=== PATIENT | female | born 1970 | race Caucasian/White ===

== ENCOUNTER 2016-10-26 08:31 | Emergency (ER) | payer OTHER ==
[~2016-10-26] VITALS: Wt 63.0 kg
[2016-10-26] MEDS ORDERED: LIDOCAINE/MYLANTA 40 ML BTL PO ONE (09:30)
[2016-10-26] MEDS ORDERED: FAMOTIDINE 20 MG TAB PO ONE (09:30)
[2016-10-26 09:52] LABS: BASOPHILS % 0.1 % (0.0-2.0); EOSINOPHILS % 0.1 % (0.0-7.0); HEMATOCRIT 42.8 % (37.0-47.0); HEMOGLOBIN 14.5 g/dl (12.0-16.0); LYMPHOCYTES % 8.6 % (15.0-51.0); MEAN CORPUSCULAR HEMOGLOBIN 30.6 pg (29.0-33.0); MEAN CORPUSCULAR HGB CONC 33.8 g/dl (32.0-37.0); MEAN CORPUSCULAR VOLUME 90.5 fl (82.0-101.0); MEAN PLATELET VOLUME 8.7 fl (7.4-10.4); MONOCYTE # 0.3 10^3/ul (0.3-0.9); MONOCYTES % 2.9 % (0.0-11.0); NEUTROPHIL # 9.8 10^3/ul (1.6-7.5); NEUTROPHILS % 88.3 % (39.0-77.0); PLATELET COUNT 290 10^3/UL (140-440); RED BLOOD COUNT 4.73 10^6/ul (4.20-5.40); RED CELL DISTRIBUTION WIDTH 13.7 % (11.5-14.5); UNCORRECTED WBC 11.1 10^3/ul (4.8-10.8); WHITE BLOOD COUNT 11.1 10^3/ul (4.8-10.8)
[2016-10-26 09:55] LABS: CONDITION 1
[2016-10-26 09:57] LABS: ALBUMIN 4.6 g/dl (3.3-4.9)
[2016-10-26 09:58] LABS: POTASSIUM 4.4 mmol/L (3.5-5.1)
[2016-10-26 09:59] LABS: ADD UMIC YES; URINE BILIRUBIN (Dip) NEGATIVE (NEGATIVE); URINE BLOOD (Dip) 3+ (NEGATIVE); URINE COLOR LT. YELLOW (YELLOW); URINE GLUCOSE (Dip) NEGATIVE (NEGATIVE); URINE KETONES (Dip) NEGATIVE (NEGATIVE); URINE LEUKOCYTE ESTERASE (Dip) NEGATIVE (NEGATIVE); URINE NITRITE (Dip) NEGATIVE (NEGATIVE); URINE TOTAL PROTEIN (Dip) NEGATIVE (NEGATIVE); URINE UROBILINOGEN (Dip) 0.2 E.U./dL (0.1-1.0)
[2016-10-26 10:00] LABS: BILIRUBIN,INDIRECT 0.7 mg/dl (0-1.1); BILIRUBIN,TOTAL 0.7 mg/dl (0.2-1.3); CREATININE 0.64 mg/dl (0.44-1.00)
[2016-10-26 10:01] LABS: ALBUMIN/GLOBULIN RATIO 1.09; CALCIUM 10.3 mg/dl (8.4-10.2); TOTAL PROTEIN 8.8 g/dl (6.1-8.1)
[2016-10-26] MEDS ORDERED: FAMO-18 PO (11:36)
[2016-10-26 11:45] VITALS: TEMP 98.4
--- NOTE | 2016-10-26 12:19 | ERD ---
ER Documentation Chief Complaint Date/Time DATE: 10/26/16 TIME: 12:15 Chief Complaint ABDOMINAL PAIN SINCE LAST NIGHT. NO NAUSEA OR VOMITING NOTED. HPI 46-year-old female with a past medical history of hyperlipidemia presents the ED complaining of abdominal pain that started last night. States that it is predominantly in the epigastric region. Reports that it does not radiate. States that her last menses started earlier today. Reports that she had a normal bowel movement earlier today. States that the pain is a burning type of sensation and rates the pain a 8 out of 10. Denies any chest pain, shortness of breath, nausea, vomiting, diarrhea, melena, hemoptysis, cough. States that she has had a previous right ovarian cystectomy. Denies any smoking, alcohol use, drug use. ROS All systems reviewed and are negative except as per history of present illness. Medications Home Meds Active Scripts Famotidine* (Pepcid*) 20 Mg Tablet, 20 MG PO BID for 4 Days, #30 TAB Prov:KULWINDER GONZALEZ PA-C 10/26/16 Reported Medications [None] No Conflict Check 02/14/12 Allergies Allergies: Coded Allergies: No Known Allergies (Verified Allergy, Unknown, 02/14/12) PMhx/Soc History of Surgery: Yes (PREVIOUS CYSTECTOMY) Anesthesia Reaction: No Hx Neurological Disorder: No Hx Respiratory Disorders: No Hx Cardiac Disorders: Yes (HYPERCHOLESTEROLEMIA) Hx Psychiatric Problems: No Hx Miscellaneous Medical Probl: No Hx Alcohol Use: No Hx Substance Use: No Hx Tobacco Use: No Smoking Status: Never smoker Physical Exam Vitals Vital Signs Date Time Temp Pulse Resp B/P Pulse Ox O2 Delivery O2 Flow Rate FiO2 10/26/16 11:45 98.4 10/26/16 08:36 98.4 81 20 124/64 98 Physical Exam Const: [id number], well-nourished. In no acute distress. Head: Atraumatic, normocephalic Eyes: Normal Conjunctiva without injection. No purulent discharge. ENT: Normal external ear, nose. Moist oropharynx without tonsillar exudates. Non -erythematous pharynx. Uvula midline. No drooling. No trismus. Neck: No cervical midline tenderness. Full range of motion. No meningismus. No cervical lymphadenopathy. No JVD. Resp: Clear to auscultation bilaterally. No wheezing, rhonchi, rales, or crackles. No accessory muscle use. No retractions. Cardio: Regular rate and rhythm. No murmurs, rubs or gallops. Abd: Soft, tenderness to palpation of the epigastric region, non distended. Normal bowel sounds. No palpable masses. No rebound tenderness. No guarding. Negative McBurney's point. Negative psoas sign. Negative obturator sign. Skin: No petechiae or rashes Back: No midline tenderness. No CVA tenderness. Ext: No cyanosis, or edema. Neur: Awake and alert. Normal gait. Normal coordination. Psych: Normal Mood and Affect Result Diagram: 10/26/1692210/26/16922 Results 24 hrs Laboratory Tests Test 10/26/16 09:22 10/26/16 09:23 Urine Bilirubin NEGATIVE Urine Clarity CLEAR Urine Color LT. YELLOW Urine Glucose NEGATIVE% Urine Hemoglobin 3+ Urine Ketones NEGATIVE Urine Leukocyte Esterase NEGATIVE Urine Microscopic RBC 10-25/HPF Urine Microscopic WBC NONE SEEN/HPF Urine Nitrite NEGATIVE Urine Specific [place] <=1.005 Urine Total Protein NEGATIVE Urine Urobilinogen 0.2 E.U./dL Urine pH 6.5 Alanine Aminotransferase (ALT/SGPT) 81IU/L Albumin 4.6g/dl Albumin/Globulin Ratio 1.09 Alkaline Phosphatase 89IU/L Anion Gap 19 Aspartate Amino Transf (AST/SGOT) 141IU/L Basophils # 0.010^3/ul Basophils % 0.1% Blood Urea Nitrogen 14mg/dl Calcium Level 10.3mg/dl Carbon Dioxide Level 28mmol/L Chloride Level 104mmol/L Creatinine 0.64mg/dl Direct Bilirubin 0.00mg/dl Eosinophils # 0.010^3/ul Eosinophils % 0.1% Globulin 4.20g/dl Glucose Level 91mg/dl Hematocrit 42.8% Hemoglobin 14.5g/dl Indirect Bilirubin 0.7mg/dl Lipase 85U/L Lymphocytes # 1.010^3/ul Lymphocytes % 8.6% Mean Corpuscular Hemoglobin 30.6pg Mean Corpuscular Hemoglobin Concent 33.8g/dl Mean Corpuscular Volume 90.5fl Mean Platelet Volume 8.7fl Monocytes # 0.310^3/ul Monocytes % 2.9% Neutrophils # 9.810^3/ul Neutrophils % 88.3% Nucleated Red Blood Cells # 0.010^3/ul Nucleated Red Blood Cells % 0.0/100WBC Platelet Count 61167^3/UL Potassium Level 4.4mmol/L Red Blood Count 4.7310^6/ul Red Cell Distribution Width 13.7% Sodium Level 147mmol/L Total Bilirubin 0.7mg/dl Total Protein 8.8g/dl White Blood Count 11.110^3/ul Current Medications Medications (Trade) Dose Ordered Sig/Louisa Route PRN Reason Start Time Stop Time Status Last Admin Dose Admin Miscellaneous Medication (Gi Cocktail (2)) 40 ml ONCE ONCE PO 10/26/16 09:30 10/26/16 09:31 DC 10/26/16 09:29 Famotidine (Pepcid) 20 mg ONCE ONCE PO 10/26/16 09:30 10/26/16 09:31 DC 10/26/16 09:29 Procedures/MDM This is a 46-year-old female with no significant past medical history presents to the ED complaining of epigastric pain that started last night. Patient is afebrile and nontoxic-appearing. Patient has normal vital signs. Patient was further worked up with CBC, CMP, lipase, UA, urine . Patient's pain and symptoms have improved after treatment with GI cocktail, famotidine. CBC: No leukocytosis. No e/o of systemic infection. No e/o anemia. CMP: No e/o severe acidosis, alkalosis, renal failure, diabetic ketoacidosis, liver disease Lipase within normal limits. Urine: No leukocyte esterase, no nitrites, no hematuria. Urine : negative Patient symptoms are likely due to possible gastritis. There is a suspicion for cholecystitis, choledocholithiasis, cholangitis, pancreatitis, gallstone pancreatitis, acute myocardial infarction, pneumothorax, pnuemonia, cardiac tamponade, pulmonary embolism, AAA, aortic dissection, Boerhaave's syndrome, cardiac dysrhythmias,meningitis, intracranial bleed, seizure, stroke, TIA or other emergent conditions. A differential diagnosis considered includes but is not limited to GERD, peptic ulcer disease, cholecystitis, choledocholithiasis, cholangitis, pancreatitis, appendicitis, bowel obstruction, ileus, volvulus, nephrolithiasis, pyelonephritis, hepatitis, perforated viscus, diverticulitis, abdominal hernia, acute abdomen, mesenteric ischemia or other emergent conditions. Discharge medications: Famotidine Follow up with primary care physician in 1-2 days for referral to [facility] hanger. Instructed patient to return to the ED sooner for any worsening symptoms. Patient's questions were answered. Patient understood and agreed with discharge plan. Patient discharged stable. Departure Diagnosis: Primary Impression: Epigastric pain Condition: Stable Patient Instructions: Epigastric Pain (Uncertain Cause) Referrals: [facility] YOU HAVE RECEIVED A MEDICAL SCREENING EXAM AND THE RESULTS INDICATE THAT YOU DO NOT HAVE A CONDITION THAT REQUIRES URGENT TREATMENT IN THE EMERGENCY DEPARTMENT. FURTHER EVALUATION AND TREATMENT OF YOUR CONDITION CAN WAIT UNTIL YOU ARE SEEN IN YOUR DOCTORS OFFICE WITHIN THE NEXT 1-2 DAYS. IT IS YOUR RESPONSIBILITY TO MAKE AN APPOINTMENT FOR FOLOW-UP CARE. IF YOU HAVE A PRIMARY DOCTOR --you should call your primary doctor and schedule an appointment IF YOU DO NOT HAVE A PRIMARY DOCTOR YOU CAN CALL OUR PHYSICIAN REFERRAL HOTLINE AT IF YOU CAN NOT AFFORD TO SEE A PHYSICIAN YOU CAN CHOSE FROM THE FOLLOWING [facility] [address] [facility]. [facility] [address] [facility]. [facility] [address] [facility] [facility] [address] [facility] [facility] [address] [facility]. [facility]. [address] [facility]. [facility] YOU HAVE RECEIVED A MEDICAL SCREENING EXAM AND THE RESULTS INDICATE THAT YOU DO NOT HAVE A CONDITION THAT REQUIRES URGENT TREATMENT IN THE EMERGENCY DEPARTMENT. FURTHER EVALUATION AND TREATMENT OF YOUR CONDITION CAN WAIT UNTIL YOU ARE SEEN IN YOUR DOCTORS OFFICE WITHIN THE NEXT 1-2 DAYS. IT IS YOUR RESPONSIBILITY TO MAKE AN APPOINTMENT FOR FOLOW-UP CARE. IF YOU HAVE A PRIMARY DOCTOR --you should call your primary doctor and schedule and appointment IF YOU DO NOT HAVE A PRIMARY DOCTOR YOU CAN CALL OUR PHYSICIAN REFERRAL HOTLINE AT . IF YOU CAN NOT AFFORD TO SEE A PHYSICIAN YOU CAN CHOSE FROM THE FOLLOWING [facility]: [facility] [address] [place] [address] [facility] [address] [place] [address] [facility] [address] [place] [address] [facility] URGENT CARE/SPECIALTIES Additional Instructions: Visite a ramires ranjan johns para un EXAMEN.Regrese a estas instalaciones si no se mejora laurita esperbamos o laurita le dijimos. KULWINDER GONZALEZ PA-C Oct 26, 2016 12:19
== END 2016-10-26 11:45 | disposition home or self-care (01) ==
LOC: FTE 08:31
DX: R10.13 Epigastric pain (principal)
CPT/HCPCS: 80053; 81001; 81003; 83690; 85025; Z7610; 36415; 99283

== ENCOUNTER 2017-02-19 05:51 | Emergency (ER) | payer OTHER ==
[~2017-02-19] VITALS: Ht 154.9 cm; Wt 69.5 kg
[~2017-02-19 05:51] MED LIST: FAMO-18 PO
[2017-02-19 05:55] VITALS: Ht 154.9 cm; Wt 69.5 kg
--- NOTE | 2017-02-19 06:22 | ERD ---
ER Documentation Chief Complaint Date/Time DATE: 02/19/17 TIME: 06:10 Chief Complaint Epigastric Pain since 10AM yesterday. Seen 4 months ago for the same proble HPI 46-year-old female presents to the emergency department for epigastric pain that started yesterday at around 10 AM. Patient described pain as sharp/dull that is nonradiating with a rate of 8/10 at this time. States that the pain woke her up this morning. Denies headache, loss of consciousness, dizziness, blurry vision, changes in vision, photophobia, facial pain, ear pain, throat pain, difficulty swallowing, neck pain, shoulder pain, chest pain, cough, hemoptysis, back pain, loss of appetite, nausea, vomiting, hematochezia, diarrhea, constipation, urinary symptoms, , the possibility of being , bladder and bowel incontinences, extremity weakness, extremity tenderness, numbness or tingling sensation, difficulty walking, recent travel, recent exposure to illness, recent antibiotic use in the last 3 months, fever, chills. LMP: January 27, 2017. A0. No known drug allergies. Past medical history of hyperlipidemia. Surgical history: Stated that she has right ovarian cyst removal. Family history: Denies family history of cardiac before the age of 50. Social history: Works as a dental residential real estate assistant. Denies smoking, use of alcohol, use of illegal drugs. ROS All systems reviewed and are negative except as per history of present illness. Medications Home Meds Active Scripts Famotidine* (Pepcid*) 20 Mg Tablet, 20 MG PO DAILY for 10 Days, TAB Prov:JULIENNE PRESTONAR F 02/19/17 Ondansetron (Ondansetron Odt) 4 Mg Tab.rapdis, 4 MG PO Q6H Y for NAUSEA AND/OR VOMITING, #20 TAB Prov:PASILABAN,JULIENNEAR F 02/19/17 Hydrocodone/Acetaminophen (Parsons 10-325 Tablet) 1 Each Tablet, 1 TAB PO Q6H Y for PAIN, #20 TAB Prov:PASILABAN,JULIENNEAR F 02/19/17 Famotidine* (Pepcid*) 20 Mg Tablet, 20 MG PO BID for 4 Days, #30 TAB Prov:KULWINDER GONZALEZ PA-C 10/26/16 Reported Medications [None] No Conflict Check 02/14/12 Allergies Allergies: Coded Allergies: No Known Allergies (Verified Allergy, Unknown, 02/14/12) PMhx/Soc History of Surgery: Yes (PREVIOUS CYSTECTOMY) Anesthesia Reaction: No Hx Neurological Disorder: No Hx Respiratory Disorders: No Hx Cardiac Disorders: Yes (HYPERCHOLESTEROLEMIA) Hx Psychiatric Problems: No Hx Miscellaneous Medical Probl: No Hx Alcohol Use: No Hx Substance Use: No Hx Tobacco Use: No Physical Exam Vitals Vital Signs Date Time Temp Pulse Resp B/P Pulse Ox O2 Delivery O2 Flow Rate FiO2 02/19/17 05:55 99.2 72 20 121/70 99 Physical Exam CONSTITUTIONAL: Well-appearing; well-nourished; in no apparent distress. HEAD: Normocephalic; atraumatic. EYES: Conjunctiva clear, sclera non-icteric, EOM intact. PERRL Ears: Hearing intact. EACs clear, TMs non-bulging, non-inflamed, translucent & mobile, ossicles normal appearance, No obstructions, no erythema, no discharges Nose: No obstructions. No polyps. No external lesions. Mucosa non-inflamed. No external lesions, septum and turbinates normal. No rhinorrhea. No discharges. Frontal sinus is non-tender to palpation. Maxillary sinus is non-tender to palpation. MOUTH: Moist mucous membranes, no lesion, no obstructions, no vesicles, no thrush, patent airway Throat: Uvula in midline. Right tonsil is +1 with no erythema, no exudate. Left tonsil is +1 with no erythema, no exudate. Tolerating secretions well. Good gag reflex. Patent airway. Neck: Supple, without lesions, bruits, or adenopathy. No mass. Thyroid non- enlarged and non-tender to palpation. CHEST: Symmetrical chest. Respirations even and not labored. No retractions noted. CARDIOVASCULAR: Normal S1, S2. RRR. No murmurs, gallops. RESPIRATORY: Normal chest excursion with respiration; breath sounds clear and equal bilaterally; no wheezes, rhonchi, or rales. Breathing even and unlabored. Speaking in clear, full, and complete sentences w/ ease. ABDOMEN: Normal bowel sounds normal. Soft, round, non-distended, non-guarding, no rebound, no organomegaly, no masses, no pulsating abdominal mass. Has right upper abdominal tenderness during inspiration. No hernia. Negative on Rovsing' s sign. Negative on Aldo sign. Able to jump 5 times without developing right -sided abdominal pain. No peritoneal signs. : No CVA tenderness. BACK: Symmetrical shoulder. Spine is midline without deformity, tenderness. No evidence of trauma or deformity. PELVIS: Stable pelvis. No evidence of trauma or deformity. MUSCULOSKELETAL: Normal gait and station. No misalignment, asymmetry, crepitation, defects, tenderness, masses, effusions, decreased range of motion, instability, atrophy or abnormal strength or tone in the head, neck, spine, ribs , pelvis or extremities. No calf tenderness. NEUROVASCULAR: Distal pulses are present. Pedal pulse are present, equal, and normal. Capillary refills are < 2 seconds. NEUROLOGIC: Alert and oriented x4. Speaks full and clear sentences. Cranial Nerves II-XII normal. Sensation to pain, touch, and proprioception normal. Grossly unremarkable. No neurologic deficits. Romberg test is negative. PSYCHOLOGICAL: The patients mood and manner are appropriate. No hallucinations , delusions. Not SI. Not HI. Has the capacity to decide for self SKIN: Normal for age and ethnicity; warm; dry; good turgor; no apparent lesions or exudates. No rashes, hives, discoloration. Intact. Result Diagram: 02/19/1763402/19/1735 Results 24 hrs Laboratory Tests Test 02/19/17 06:26 02/19/17 06:35 Urine Color LT. YELLOW Urine Clarity CLEAR Urine pH 7.0 Urine Specific [place] 1.010 Urine Ketones NEGATIVE Urine Nitrite NEGATIVE Urine Bilirubin NEGATIVE Urine Urobilinogen 0.2 E.U./dL Urine Leukocyte Esterase NEGATIVE Urine Microscopic RBC 0-2/HPF Urine Microscopic WBC NONE SEEN/HPF Urine Epithelial Cells RARE Urine Amorphous Phosphates OCCASIONAL Urine Hemoglobin TRACE Urine Glucose NEGATIVE% Urine Total Protein NEGATIVE Urine Test NEGATIVE White Blood Count 7.110^3/ul Red Blood Count 4.4210^6/ul Hemoglobin 13.6g/dl Hematocrit 39.9% Mean Corpuscular Volume 90.3fl Mean Corpuscular Hemoglobin 30.8pg Mean Corpuscular Hemoglobin Concent 34.1g/dl Red Cell Distribution Width 13.0% Platelet Count 10376^3/UL Mean Platelet Volume 10.3fl Neutrophils % 75.3% Lymphocytes % 18.3% Monocytes % 5.5% Eosinophils % 0.3% Basophils % 0.3% Nucleated Red Blood Cells % 0.0/100WBC Neutrophils # 5.410^3/ul Lymphocytes # 1.310^3/ul Monocytes # 0.410^3/ul Eosinophils # 0.010^3/ul Basophils # 0.010^3/ul Nucleated Red Blood Cells # 0.010^3/ul Sodium Level 143mmol/L Potassium Level 4.0mmol/L Chloride Level 104mmol/L Carbon Dioxide Level 28mmol/L Anion Gap 15 Blood Urea Nitrogen 12mg/dl Creatinine 0.69mg/dl Glucose Level 99mg/dl Calcium Level 9.9mg/dl Total Bilirubin 0.8mg/dl Direct Bilirubin 0.00mg/dl Indirect Bilirubin 0.8mg/dl Aspartate Amino Transf (AST/SGOT) 26IU/L Alanine Aminotransferase (ALT/SGPT) 29IU/L Alkaline Phosphatase 67IU/L Total Protein 8.2g/dl Albumin 4.2g/dl Globulin 4.00g/dl Albumin/Globulin Ratio 1.05 Amylase Level 74U/L Lipase 75U/L Beta HCG, Quantitative < 2.4mIU/ml Procedures/MDM Examination: Please see physical examination. Disease process, medical treatment was explained to the patient and family member. They verbalized understanding and agreed with the diagnostic tests, medical treatment, and follow-up care. EKG: Normal sinus rhythm with ventricular rate of 62 bpm. No evidence of acute myocardial infarction. Radiology: Gallbladder ultrasound. Impression: Gallstones and gallbladder sludge without ultrasound evidence of cholecystitis. Pancreas obscured by overlying bowel gas. Blood works: Reviewed. HCG urine: Negative. Urinalysis: Reviewed. Re-evaluation: Denies headache, dizziness, blurry vision, throat pain, neck pain , shoulder pain, chest pain, abdominal pain, back pain. Able to tolerate one cup of water by mouth. No episode of emesis here in the emergency department. There is no right-sided/right lower/epigastric/left upper/left lower abdominal tenderness and light and deep palpation. No CVA tenderness. Negative on Rovsing sign. Negative Goodyear sign. Able to jump 5 times without developing right-sided abdominal pain. No peritoneal signs. Ambulatory with steady gait. No neurovascular deficit. No neurological deficits. Consultation: None. Differential diagnosis: Acute myocardial infarction versus acute cholecystitis versus pancreatitis versus gastritis versus pneumonia versus urinary tract infection Medical decision makin-year-old female presents to the emergency department for epigastric pain that started yesterday at around 10 AM. Patient described pain as sharp/dull that is nonradiating with a rate of 8/10 at this time. States that the pain woke her up this morning. Patient's complaint, patient's history about her complaint, my physical findings, diagnostic test results, my reevaluation are consistent with my final diagnosis of gallstones. Medications prescribed are the following: Parsons. Zofran. Pepcid. Patient and family member are made aware of the side effects and adverse reactions of the medications prescribed. Instructed on when to seek emergent and medical attention in case allergic/anaphylactic reactions or severe side effects and or adverse reactions to medications. Patient and family member verbalized understanding. Patient instructed Instructed to follow-up with his PCP in 24-48 hours. PCP to refer patient to core winding operator. Instructed to Call 911 for chest pain, shortness of breath. Advised to come back here in ED as soon as possible for severity of symptoms which includes but not limited to: any new symptoms; shortness of breath/difficulty of breathing; cardiovascular changes; severe gastrointestinal symptoms; signs and symptoms of bleeding and or infection; signs of compartment syndrome/neurovascular changes; neurological changes/deficits. Patient and family member verbalized understanding. Upon discharge, patient is alert and oriented x 4, speaks full and clear sentences, denies pain, has no neurological deficits, has no neurovascular deficits, difficulty of breathing. Breathing even and unlabored. Lung sounds are clear to auscultation. Not in distress. Appears comfortable. Ambulatory with steady gait. Appears satisfied with care provided here in ED. Departure Diagnosis: Primary Impression: Gallstones Condition: Stable Additional Instructions: Follow-up with PCP in the next 24-48 hours. PCP to refer patient to a core winding operator. Patient stated that she has an appointment tomorrow to her primary care physician. Patient and her significant other verbalized understanding. Hemodynamically stable on discharge. CECI PRESTON February 19, 2017 06:22 CECI PRESTON February 19, 2017 06:22
[2017-02-19 06:50] LABS: ADD SCAN DIFF NO
[2017-02-19 06:52] LABS: ADD UMIC YES; URINE BILIRUBIN (Dip) NEGATIVE (NEGATIVE); URINE BLOOD (Dip) TRACE (NEGATIVE); URINE COLOR LT. YELLOW (YELLOW); URINE GLUCOSE (Dip) NEGATIVE (NEGATIVE); URINE KETONES (Dip) NEGATIVE (NEGATIVE); URINE LEUKOCYTE ESTERASE (Dip) NEGATIVE (NEGATIVE); URINE NITRITE (Dip) NEGATIVE (NEGATIVE); URINE TOTAL PROTEIN (Dip) NEGATIVE (NEGATIVE); URINE UROBILINOGEN (Dip) 0.2 E.U./dL (0.1-1.0)
[2017-02-19 06:53] LABS: BASOPHILS % 0.3 % (0.0-2.0); EOSINOPHILS % 0.3 % (0.0-7.0); HEMATOCRIT 39.9 % (37.0-47.0); HEMOGLOBIN 13.6 g/dl (12.0-16.0); LYMPHOCYTES # 1.3 10^3/ul (0.8-2.9); LYMPHOCYTES % 18.3 % (15.0-51.0); MEAN CORPUSCULAR HEMOGLOBIN 30.8 pg (29.0-33.0); MEAN CORPUSCULAR HGB CONC 34.1 g/dl (32.0-37.0); MEAN CORPUSCULAR VOLUME 90.3 fl (82.0-101.0); MEAN PLATELET VOLUME 10.3 fl (7.4-10.4); MONOCYTE # 0.4 10^3/ul (0.3-0.9); MONOCYTES % 5.5 % (0.0-11.0); NEUTROPHIL # 5.4 10^3/ul (1.6-7.5); NEUTROPHILS % 75.3 % (39.0-77.0); PLATELET COUNT 244 10^3/UL (140-415); RED BLOOD COUNT 4.42 10^6/ul (4.20-5.40); WHITE BLOOD COUNT 7.1 10^3/ul (4.8-10.8)
[2017-02-19 07:07] LABS: URINE RBCS 0-2 /HPF (0)
[2017-02-19 07:31] LABS: BILIRUBIN,INDIRECT 0.8 mg/dl (0-1.1); BILIRUBIN,TOTAL 0.8 mg/dl (0.2-1.3); CREATININE 0.69 mg/dl (0.44-1.00); TOTAL PROTEIN 8.2 g/dl (6.1-8.1)
[2017-02-19 07:32] LABS: CALCIUM 9.9 mg/dl (8.4-10.2)
--- NOTE | 2017-02-19 07:32 | RADRPT ---
PROCEDURE: Abdominal ultrasound, limited. CLINICAL INDICATION: Abdominal pain. TECHNIQUE: Multiple real-time images were acquired of the patient's right upper abdomen utilizing a high resolution transducer. COMPARISON: None FINDINGS: The liver demonstrates normal echogenicity and size measuring 15.3 cm. There is no focal mass or in trahepatic biliary ductal dilatation. The portal vein is patent. The gallbladder is not distended. Multiple echogenic gallstones are identified. Echogenic sludge is seen within the gallbladder. The re is no pericholecystic fluid or gallbladder wall thickening. The common bile duct measures 4.6 mm in maximal dimension. The pancreas is obscured by overlying bowel gas. No free fluid is identifie d. The right kidney is normal size and echogenicity measuring 10.2 cm. There is no focal renal mass or echogenic calculus identified. There is no obstructive uropathy. IMPRESSION: Gallstones and gallbladder sludge without ultrasound evidence of cholecystitis. Pancreas obscured by overlying bowel gas. .Seth Sheikh MD, Date Time Electronically viewed and signed by .Seth Sheikh MD, MD on 02/19/2017 07:32 .T/
[2017-02-19 07:49] LABS: ALBUMIN 4.2 g/dl (3.3-4.9); ALBUMIN/GLOBULIN RATIO 1.05
[2017-02-19] MEDS ORDERED: HYDR-902 PO (09:38)
[2017-02-19] MEDS ORDERED: ONDA4TAB14 PO (09:38)
[2017-02-19] MEDS ORDERED: FAMO-18 PO (09:39)
== END 2017-02-19 10:02 | disposition home or self-care (01) ==
LOC: FTE 05:51
DX: K80.20 Calculus of gallbladder without cholecystitis without obstruction (principal)
CPT/HCPCS: 36415; 76705; 80053; 81001; 81003; 82150; 83690; 84702; 84703; 85025; 87086; 93005; Z7502